=== PATIENT | female | born 1960 | race Two or more races ===

== ENCOUNTER 2023-10-06 12:29 | Emergency (ER) | payer MEDICAID ==
[~2023-10-06] VITALS: Ht 157.5 cm; Wt 68.5 kg
[2023-10-06 13:53] LABS: BASOPHILS % (AUTO) 0.5 % (0.0-2.0); EOSINOPHILS # (AUTO) 0.1 K/uL (0.0-0.7); EOSINOPHILS % (AUTO) 0.8 % (0.0-6.0); HEMATOCRIT 41 % (33-45); HEMOGLOBIN 13.7 g/dL (11.5-14.8); LYMPHOCYTES % (AUTO) 28.9 % (20.0-44.0); MEAN CORPUSCULAR HEMOGLOBIN 29 PG (26.0-33.0); MEAN CORPUSCULAR HGB CONC 33 g/dl (31.0-36.0); MEAN CORPUSCULAR VOLUME 88 fL (82-100); MONOCYTES # (AUTO) 0.5 K/uL (0.1-1.30); MONOCYTES % (AUTO) 6.4 % (2.0-12.0); NEUTROPHILS # (AUTO) 4.5 K/uL (1.8-8.9); NEUTROPHILS % (AUTO) 63.4 % (43.0-81.0); PLATELET COUNT (AUTO) 180 K/uL (150-450); WHITE BLOOD COUNT (AUTO) 7.1 K/uL (4.3-11.0)
[2023-10-06 14:07] LABS: CALCIUM, SERUM 8.6 mg/dL (8.5-10.1); CARBON DIOXIDE 28 mmol/L (21-32); CHLORIDE 103 mmol/L (98-107); CREATININE 0.7 mg/dL (0.6-1.3); GLUCOSE 225 mg/dL (74-106); POTASSIUM 3.6 mmol/L (3.5-5.1); SODIUM SERUM 140 mmol/L (136-145); UREA NITROGEN, BLOOD 11 mg/dL (7-18)
[2023-10-06 14:22] LABS: NT-PRO BNP 122 pg/mL (0-125)
[2023-10-06] MEDS ORDERED: BENAZEPRIL HCL 10 MG TABLET ONE (14:40)
[2023-10-06] MEDS ORDERED: BENA40TA67 PO (14:44)
[2023-10-06] MEDS: BENAZEPRIL HCL 10 MG TABLET PO ONE (14:45)
[2023-10-06 15:31] VITALS: BP 152/80; TEMP 98.4; O2SAT 100
== END 2023-10-06 15:33 | disposition home or self-care (01) ==
LOC: ER 12:32
DX: I10 Essential (primary) hypertension (principal)
CPT/HCPCS: 36415; 71045-TC; 80048-TC; 83880; 84484-TC; 85025-TC